=== PATIENT | male | born 1980 | race Caucasian/White ===

== ENCOUNTER 2023-11-29 21:25 | Emergency (ER) | payer OTHER, SELFPAY ==
[2023-11-29 21:25] VITALS: BMI 23.2
[2023-11-29 21:26] VITALS: BP 123/87
[2023-11-29 21:42] LABS: % Basophils 0.4 % (0-2); % Eosinophils 0.4 % (0-6); % Immature Granulocytes 0.3 % (0-0.5); % Lymphocytes 14.3 % (20.5-51.1); % Monocytes 7.1 % (1.7-9.3); % Neutrophils 77.5 % (42.2-75.2); Absolute Lymphocytes 1.4 10^3/uL (1.2-3.4); Absolute Monocytes 0.7 10^3/uL (0.1-0.6); Absolute Neutrophils 7.8 10^3/uL (1.4-6.5); Hematocrit 37.1 % (39.0-52.0); Hemoglobin 13.4 g/dL (13.0-18.0); Mean Corp Hgb Conc. 36.1 g/dL (33.0-37.0); Mean Corpuscular Hgb 31.2 pg (27.0-31.0); Mean Corpuscular Volume 86.5 fL (80.0-94.0); Mean Platelet Volume 9.1 fL (7.4-10.4); Nucleated Red Blood Cells % 0 % (-); Platelet Count 182 10^3/uL (130-400); Red Blood Cell Count 4.29 10^6/uL (4.70-6.10); Red Cell Dist. Width 12.7 % (11.5-14.5); Urine Albumin Negative (Neg - Trace); Urine Bilirubin Negative (Negative); Urine Character Clear (Clear); Urine Color Yellow; Urine Glucose Negative (Negative); Urine Ketone Negative (Negative); Urine Leukocyte Negative (Negative); Urine Nitrite Negative (Negative); Urine Occult Blood Negative (Negative); Urine Specific Gravity 1.005 (<1.030); Urine Urobilinogen Negative (Neg - 1+); Urine pH 6.5 (5.0-9.0)
[2023-11-29 21:47] VITALS: BP 121/83
[2023-11-29 21:54] LABS: ALT (SGPT) 19 U/L (0-50); AST (SGOT) 26 U/L (17-59); Albumin 4.7 g/dl (3.5-5.0); Alkaline Phosphatase 74 U/L (38-126); Blood Urea Nitrogen 14 mg/dl (9-20); Calcium 9.7 mg/dl (8.4-10.2); Carbon Dioxide 28 mmol/L (22-30); Chloride 99 mmol/L (98-107); Estimated Creatinine Clearance 99 ml/min; Glucose 111 mg/dl (70-99); Lipase 74 U/L (23-300); Potassium 3.7 mmol/L (3.5-5.1); Sodium 131 mmol/L (135-145); Total Bilirubin 1.2 mg/dl (0.2-1.3); Total Protein 7.7 g/dl (6.3-8.2); eGFR > 60.00
[2023-11-29 22:00] VITALS: BP 116/72
[2023-11-29 23:00] VITALS: BP 127/75
--- NOTE | 2023-11-29 23:10 | ED.GENMED ---
History of Present Illness
General
Chief Complaint: Abdominal Pain
Source: patient
Exam Limitations: none
Time Seen by Provider: 11/29/23 22:47
Travel History
Have you had any contact with someone who has COVID-19?: No
Do you have any symptoms of coronavirus? Fever > 100 degrees, chills, cough, shortness of breath, sore throat, loss of taste or smell, muscle aches, or headache?: No
History of Present Illness
History of Present Illness:
This is a 43 year old male that comes in with c/o left sided abd pain. States that this started yesterday evening and it awoke him during the night. States that the pain is worse today and he had a fever with chills. States that his temp was 101.
Denies any chest pain, SOB, nausea, vomiting, diarrhea, headache, dizziness, urinary burning.
Past History
Past History
ED Past Medical History: None; Negative Asthma, HTN or Hypercholesterolemia
ED Past Surgical History: Orthopedic (Left thumb tendon repair)
Social History
Tobacco: Non-smoker
Alcohol: Occasional
Personal:
Living: with family
Employment: Employed
Review of Systems
Review of Systems
All Other Systems: ROS reviewed and negative except as documented in HPI and ROS
Constitutional: Reports no symptoms; Denies fever or chills
EENT: Reports no symptoms
Respiratory: Reports no symptoms; Denies cough or trouble breathing
Cardiac: Reports no symptoms; Denies chest pain
ABD/GI: Reports abdominal pain; Denies nausea, vomiting or diarrhea
: Reports no symptoms; Denies dysuria, frequency or urgency
Musculoskeletal: Reports no symptoms
Skin: Reports no symptoms
Neurological: Reports no symptoms; Denies dizzy or headache
Psychiatric: Reports no symptoms
Phy Exam
General Physical Exam
General Presentation: well appearing and no apparent distress
General age: appears stated age
General Skin: warm and dry
General Habitus: normal
General Mental: alert
General Hydration: appears well hydrated
ENT Exam
ENT Exam: TM's normal, pharynx normal and neck supple
Eye Exam
Eye Exam: EOMI
Cardiovascular Exam
Cardiovascular Exam: regular rate/rhythm, no edema, no murmur and normal peripheral pulses
Pulmonary Exam
Pulmonary Exam: lungs clear, no respiratory distress, no rales, chest non tender, no crackles, no rhonchi, no wheezing and no cough
Gastrointestinal Exam
Gastrointestinal Exam: normal bowel sounds, soft, no organomegaly, no pulsatile mass, non distended and tender (Left lower abd tenderness with palpation)
Musculoskeletal Exam
Musculoskeletal Exam: full ROM and no edema
Skin Exam
Skin Exam: normal color, warm/dry, no rash and no petechia
Psychiatric Exam
Psychiatric Exam: normal mood/affect
Course
Orders/Labs/Results
Orders:
Orders
11/29/23 21:34
Complete Blood Count/With Diff Urgent
Comprehensive Metabolic Panel Urgent
Lipase Urgent
Urinalysis Reflex To Culture Urgent
Date Specimen was Collected: 11/29/23
Time Specimen was Collected: 21:28
11/29/23 22:56
0.9% Sodium Chloride 500 ml [Nss] 500 ml IV BOLUS
11/30/23 00:15
CT Abd/pelvis W Iv Cont Urgent
Reason For Exam: lEFT LOWER ABD PAIN
Abnormal Lab Results
11/29/23
21:34
RBC 4.29 L 10^6/uL
(4.70-6.10)
Hct 37.1 L %
(39.0-52.0)
MCH 31.2 H pg
(27.0-31.0)
Absolute Neuts (auto) 7.8 H 10^3/uL
(1.4-6.5)
Absolute Monos (auto) 0.7 H 10^3/uL
(0.1-0.6)
Neutrophils % 77.5 H %
(42.2-75.2)
Lymphocytes % 14.3 L %
(20.5-51.1)
Sodium 131 L mmol/L
(135-145)
Glucose 111 H mg/dl
(70-99)
11/29/23 21:34
11/29/23 21:34
Sodium slightly low. Glucose nonfasting. Lipase normal at 74, Urine negative for infection.
Vital Signs
Initial and Last Documented VS:
Initial Vital Signs
Temp Pulse Resp BP Pulse Ox
99.4 F 80 16 123/87 99
11/29/23 21:26 11/29/23 21:26 11/29/23 21:26 11/29/23 21:26 11/29/23 21:26
Last Documented Vital Signs
Temp Pulse Resp BP Pulse Ox
99.4 F 80 16 131/75 98
11/29/23 21:26 11/29/23 21:26 11/29/23 21:26 11/30/23 00:40 11/30/23 00:40
MDM/Problems Addressed
Differential Diagnosis Includes:
Diverticulitis,
MDM/Problems Addressed:
This is a 43 year old male that comes in with c/o left lower abd pain. States that this started yesterday and the pain awoke him from sleep last night. States that the pain has gotten worse and today he started with a fever of 101.
Will get labs and CT scan. IV fluids. Patient refused pain medication at this time
Back into see patient. Explained that he has Diverticulitis. Will start on Antibiotics and sent prescription to his pharmacy. Patient to return with increased or changing pain. Tylenol for any fever. Follow up with the family doctor.
Chronic conditions affecting care:
NA
Acute Exacerbation and/or Progression of Chronic Illness:
NA
*Radiology
Radiology exam reviewed: radiology read reviewed (CT-Acute sigmoid diverticulitis in the left lower Quadrant with focal wall thickening of proximal sigmoid colon and moderate surrounding inflammatory fate stranding in the setting of diverticulosis.
Small amount of reactive free fluid scattered throughout the abdomen and pelvis. No abscess or freeai)
*Pulse Oximetry
Patient hypoxic: no
*EKG
Interpreted by ED Provider?: NA
Rate: EKG- N/A
*Software Development Coordinator Interpretation
Rate: Software Development Coordinator- N/A
*Critical Care Note
Total Time (30-74mins, 75-104mins- exclusive of procedures): Not Applicable
ED Attending Note
-
Portions of this chart may have been created with voice recognition software.� Occasional wrong word or��sound alike� substitutions may have occurred due to the inherent limitations of voice recognition software.
Discharge Plan
Departure
Patient Disposition: Home (Routine Discharge)
Date of Disposition: 11/30/23
Time of Disposition: 00:47
Patient with high blood pressure during this ER visit?: Yes
Condition: Good
Covid-19: Not Applicable
Discharge Problem:
Diverticulitis
Instructions: Diverticulitis (DC), BLOOD PRESSURE
Prescriptions:
New
levofloxacin 500 mg tablet
500 mg PO DAILY 10 Days Qty: 9 0RF
metronidazole 500 mg tablet
500 mg PO TID Qty: 29 0RF
Referrals:
Eduardo Ward MD [Family Provider] - Call in 1-3 days for appt
Activity Restrictions/Additional Instructions:
As discussed, your blood work is normal and your urine is negative for infection. Your CT shows that you have diverticulitis. This is treated with antibiotics. You have been given your first dose here and prescriptions have been sent to your
Pharmacy. Tylenol for any fever. Follow up with the family doctor for recheck. IF YOU HAVE INCREASED OR CHANGING PAIN, FEVER THAT IS NOT CONTROLLED OR YOU HAVE ANY OTHER CONCERNS PLEASE RETURN TO THE EMERGENCY ROOM.
Interventions
Interventions:
*Risk Screen - Suicide Last Done: 11/29/23 21:26
*General Assessment Last Done: 11/29/23 21:26
*Neglect/Abuse Screening Last Done: 11/29/23 21:26
*ED COVID-19 Vaccine History Last Done: 11/29/23 21:48
P[facility]Pv[facility] Assessment Last Done: 11/29/23 21:50
Discharge Date and Time
Print Language: PASHTO
[2023-11-29] MEDS: NSS 500 IV (23:32)
[2023-11-30 00:40] VITALS: BP 131/75
[2023-11-30] MEDS: LEVAQUIN 500 MG PO (00:51)
[2023-11-30] MEDS: FLAGYL 500 MG PO (00:51)
== END 2023-11-30 00:56 | disposition home or self-care (01) ==
LOC: EMR 21:25
PROVIDERS: Emergency Medicine; EMERGENCY PHYSICIAN Student in an Organized Health Care Education/Training Program; FAMILY PHYSICIAN Family Medicine
DX: K57.32 Diverticulitis of large intestine without perforation or abscess without bleeding (principal); R03.0 Elevated blood-pressure reading, without diagnosis of hypertension
CPT/HCPCS: 99285; 96360; 74177; 80053; 81003; 83690; 85025; Q9967